=== PATIENT | male | born 1950 | race Caucasian/White ===

== ENCOUNTER 2017-02-25 12:26 | Day surgery (SDC) | payer OTHER ==
[2017-02-22 11:06] VITALS: BP 145/85
[~2017-02-25] VITALS: Ht 185.4 cm; Wt 95.5 kg
[~2017-02-25 12:26] MED LIST: ATOR20TA PO; EPHEDRINE 50 MG/ML, 1ML ONE
[2017-02-25] MEDS ORDERED: LACTATED RINGERS 1,000 ML IV SCH (13:03)
[2017-02-25 13:04] VITALS: BP 145/85
[2017-02-25] MEDS ORDERED: FENTANYL PF 250 MCG/5ML ONE (15:07)
[2017-02-25] MEDS ORDERED: MIDAZOLAM 1 MG/ML, 2ML ONE (15:07)
[2017-02-25] MEDS ORDERED: BUPIVACAINE/PF 0.5% ONE (15:10)
[2017-02-25] MEDS ORDERED: EPINEPHRINE 1 MG/ML, 1ML ONE (15:26)
[2017-02-25] MEDS ORDERED: BUPIVACAINE/PF 0.25% ONE (15:26)
[2017-02-25] MEDS ORDERED: DEXAMETHASONE 4 MG/ML, 1ML ONE (15:51)
[2017-02-25] MEDS ORDERED: SUCCINYLCHOLINE 20 MG/ML, 10ML ONE (15:51)
[2017-02-25] MEDS ORDERED: CEFAZOLIN 1,000 MG ONE (15:51)
[2017-02-25] MEDS ORDERED: NEOSTIGMINE 1 MG/ML, 10ML ONE (15:51)
[2017-02-25] MEDS ORDERED: ROCURONIUM 10 MG/ML ONE (15:51)
[2017-02-25] MEDS ORDERED: PROPOFOL 10 MG/ML, 20ML ONE (15:51)
[2017-02-25] MEDS ORDERED: GLYCOPYRROLATE 0.2MG/1ML, 5ML ONE (15:51)
[2017-02-25] MEDS ORDERED: ONDANSETRON 2MG/ML, 2ML ONE (15:51)
[2017-02-25] MEDS ORDERED: HYDROmorphone 1 MG/ML, 1ML IV PRN (16:30)
[2017-02-25] MEDS ORDERED: hydrALAzine 20 MG/ML, 1ML IV PRN (16:30)
[2017-02-25] MEDS ORDERED: ALBUTEROL SULFATE 2.5 MG/3 ML NPPB PRN (16:30)
[2017-02-25] MEDS ORDERED: FENTANYL PF 100 MCG/2ML IV PRN (16:30)
[2017-02-25] MEDS ORDERED: OXYcodone 5 MG/5 ML ORAL.SOL UDC PO PRN (16:30)
[2017-02-25] MEDS ORDERED: MEPERIDINE/PF 25MG/0.5ML IVPush PRN (16:30)
[2017-02-25] MEDS ORDERED: PROMETHAZINE 25 MG/ML, 1ML IV PRN (16:30)
[2017-02-25] MEDS ORDERED: METOPROLOL 1 MG/ML, 5ML IV PRN (16:30)
[2017-02-25] MEDS ORDERED: ACETAMINOPHEN 325 MG TABLET PO PRN (16:30)
== END 2017-02-25 18:40 ==
LOC: OUT 12:26
PROVIDERS: ATTEND Orthopaedic Surgery
DX: M25.312 Other instability, left shoulder (principal); M75.112 Incomplete rotator cuff tear or rupture of left shoulder, not specified as traumatic; M24.012 Loose body in left shoulder; M94.212 Chondromalacia, left shoulder; M75.52 Bursitis of left shoulder; J44.9 Chronic obstructive pulmonary disease, unspecified
CPT/HCPCS: 29806; 29822; 29826; 93005; C1713; J0171; J0690; J1100; J2250; J2405; J2704; J2710; J3010; J3490; J7120; J0330